=== PATIENT | male | born 1995 | race Caucasian/White ===

== ENCOUNTER → 2024-03-20 10:30 | Outpatient (REF) | payer OTHER, SELFPAY | LOC: MRI 3T 10:30 | PROVIDERS: ATTENDING PHYSICIAN Physician Assistant Surgical; FAMILY PHYSICIAN Family Medicine | DX: M25.561 Pain in right knee (principal) | CPT/HCPCS: 73721 ==

== ENCOUNTER 2024-04-25 08:59 | Outpatient (RCR) | payer OTHER, SELFPAY | END 2024-04-25 23:59 | disposition home or self-care (01) | LOC: RPT 08:59 | PROVIDERS: ATTENDING PHYSICIAN Physician Assistant Surgical; FAMILY PHYSICIAN Family Medicine | DX: M22.2X1 Patellofemoral disorders, right knee (principal); M94.261 Chondromalacia, right knee; Z73.6 Limitation of activities due to disability | CPT/HCPCS: 97010; 97110; 97112; 97140; 97161 ==

== ENCOUNTER 2024-05-16 08:58 | Outpatient (RCR) | payer OTHER, SELFPAY | END 2024-05-16 23:59 | disposition home or self-care (01) | LOC: RPT 08:58 | PROVIDERS: ATTENDING PHYSICIAN Physician Assistant Surgical; FAMILY PHYSICIAN Family Medicine | DX: M22.2X1 Patellofemoral disorders, right knee (principal); M94.261 Chondromalacia, right knee; Z73.6 Limitation of activities due to disability | CPT/HCPCS: 97110; 97112 ==